=== PATIENT | male | born 1960 | race Caucasian/White ===

== ENCOUNTER → 2020-05-18 | Outpatient (CLI) | payer OTHER ==
[~2020-05-18] MED LIST: ACET-1600 PO; ALBU18HF INH; AMLO10TA8 PO; ASPI-191 PO; GLUC15006 PO; LOSA50TA14 PO; METF500T17 PO; MULT-309 PO; SIMV20TA19 PO; hyaluronic acid PO
[2020-05-18 13:27] LABS: ALBUMIN 4.1 g/dL (3.4-5.0); ANION GAP 6 mmol/L (5-15); CALCIUM 9.4 mg/dL (8.5-10.1); CHLORIDE 107 mmol/L (98-107)
[2020-05-18 13:32] LABS: ALANINE AMINOTRANSFERASE 36 U/L (12-78); ALKALINE PHOSPHATASE 62 U/L (45-117); BILIRUBIN,TOTAL 0.7 mg/dL (0.2-1.0); CREATININE 0.81 mg/dL (0.7-1.3); TOTAL PROTEIN 7.3 g/dL (6.4-8.2)
== END | disposition home or self-care (01) ==
LOC: STAR 09:38
PROVIDERS: ATTEND Surgery
DX: Z01.818 Encounter for other preprocedural examination (principal); Z20.828 Contact with and (suspected) exposure to other viral communicable diseases; K64.8 Other hemorrhoids
CPT/HCPCS: 36415; 80053; 87635; 93005

== ENCOUNTER 2020-05-23 09:54 | Day surgery (SDC) | payer OTHER ==
[~2020-05-23] VITALS: Ht 177.8 cm; Wt 90.6 kg
[~2020-05-23 09:54] MED LIST changes: -ACET-1600 PO
[2020-05-23 10:18] VITALS: BP 155/95
[2020-05-23] MEDS ORDERED: LACTATED RINGERS 1,000 ML IV SCH (10:22)
[2020-05-23] MEDS ORDERED: ACET-1600 PO (10:24)
[2020-05-23] MEDS ORDERED: CHLORHEXIDINE 15 ML UDC ONE (10:28)
[2020-05-23] MEDS ORDERED: CHLORHEXIDINE 15 ML UDC MM ONE (10:30)
[2020-05-23] MEDS ORDERED: MIDAZOLAM 1 MG/ML, 2ML ONE (11:20)
[2020-05-23] MEDS ORDERED: FENTANYL PF 100 MCG/2ML ONE (11:20)
[2020-05-23] MEDS ORDERED: SILVER SULF. CRM 1% , 25GM ONE (12:03)
[2020-05-23] MEDS ORDERED: BUPIVACAINE/PF 0.5% ONE (12:03)
[2020-05-23] MEDS ORDERED: LIDOCAINE 4% CREAM 5GM TUBE TP ONE (12:10)
[2020-05-23] MEDS ORDERED: PROPOFOL 10 MG/ML, 20ML ONE (12:19)
[2020-05-23] MEDS ORDERED: CEFAZOLIN 1,000 MG ONE (12:19)
[2020-05-23] MEDS ORDERED: SUGAMMADEX 200 MG/2 ML IVPush ONE (12:19)
[2020-05-23] MEDS ORDERED: ROCURONIUM 10 MG/ML,10ML ONE (12:19)
[2020-05-23] MEDS ORDERED: PROMETHAZINE 25 MG/ML, 1ML IVPush PRN (12:30)
[2020-05-23] MEDS ORDERED: HYDROmorphone 1 MG/ML, 1ML INJ IVPush PRN (12:30)
[2020-05-23] MEDS ORDERED: ONDANSETRON 2MG/ML, 2ML IVPush PRN (12:30)
[2020-05-23] MEDS ORDERED: DIAZEPAM 5 MG/ML, 2ML IVPush PRN (12:30)
[2020-05-23] MEDS ORDERED: OXYcodone 5 MG/5 ML ORAL.SOL UDC PO PRN (12:30)
[2020-05-23] MEDS ORDERED: FENTANYL PF 100 MCG/2ML IV PRN (12:30)
[2020-05-23] MEDS ORDERED: ACETAMINOPHEN 325 MG TABLET PO PRN (12:30)
[2020-05-23] MEDS ORDERED: DIPHENHYDRAMINE 50 MG/ML, 1ML IVPush PRN (12:30)
[2020-05-23] MEDS ORDERED: MEPERIDINE/PF 25MG/0.5ML IVPush PRN (12:30)
[2020-05-23] MEDS ORDERED: EPINEPHRINE 1 MG/ML, 1ML INFIL ONE (12:36)
[2020-05-23] MEDS ORDERED: ACETAMINOPHEN 325 MG TABLET ONE (13:22)
== END 2020-05-23 15:30 | disposition home or self-care (01) ==
LOC: OUT 09:54
PROVIDERS: ATTEND Surgery
DX: K64.2 Third degree hemorrhoids (principal); I10 Essential (primary) hypertension; E11.9 Type 2 diabetes mellitus without complications; G47.33 Obstructive sleep apnea (adult) (pediatric); J45.909 Unspecified asthma, uncomplicated; E78.5 Hyperlipidemia, unspecified; Z79.84 Long term (current) use of oral hypoglycemic drugs; Z79.899 Other long term (current) drug therapy; Z87.891 Personal history of nicotine dependence; Z98.890 Other specified postprocedural states
CPT/HCPCS: 46255; 88304; J0171; J0690; J2250; J2704; J3010; J7120